=== PATIENT | female | born 1995 | race Caucasian/White ===

== ENCOUNTER → 2017-09-11 14:16 | Outpatient (CLI) | payer MEDICAID, SELFPAY ==
[2017-09-11 22:01] LABS: Chlamydia Trachomatis by PCR Negative (Negative); Neisserai gonorrhoeae by PCR Negative (Negative); Probe Check PASS; Sample Adequacy Control PASS; Specimen Processing Control PASS
[2017-09-12 09:49] LABS: HIV - WCH Non-Reactive (Nonreactive)
[2017-09-13 08:51] LABS: HEPATITIS B SURFACE AG Negative (Negative); Hep C Antibodies <0.1 s/co ratio (0.0-0.9)
[2017-09-14 05:01] LABS: Rapid Plasmin Reagin (RPR) NONREACTIVE (NONREACTIVE)
[2017-09-14 11:43] LABS: HPV Reflexed? NOT INDICATED
== END ==
PROVIDERS: Visit Provider Obstetrics & Gynecology
DX: Z12.4 Encounter for screening for malignant neoplasm of cervix (principal); Z12.72 Encounter for screening for malignant neoplasm of vagina; Z11.3 Encounter for screening for infections with a predominantly sexual mode of transmission
CPT/HCPCS: 36415; 86592; 86703; 86803; 87340; 87491; 87591; 88175; G0145

== ENCOUNTER → 2017-11-15 13:31 | Outpatient (CLI) | payer MEDICAID, SELFPAY ==
[2017-11-15 14:26] LABS: hCG Titer Quant., Serum < 1 mIU/mL (<9 non-preg)
== END ==
PROVIDERS: Visit Provider Obstetrics & Gynecology
DX: N91.2 Amenorrhea, unspecified (principal)
CPT/HCPCS: 36415; 84702

== ENCOUNTER 2018-12-03 22:58 | Emergency (ER) | payer MEDICAID, SELFPAY ==
[2018-12-03 22:59] VITALS: BP 113/67; PULSE 97; RESP 18; TEMP 36.6; O2SAT 95; BMI 33.0
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
--- NOTE | 2018-12-03 23:21 | RAD_ITS ---
STUDY: X-RAY - RIGHT SHOULDER REASON FOR EXAM: Female, 23 years old. Pain TECHNIQUE: 4 view(s) of the shoulder. COMPARISON: None. FINDINGS: Normal glenohumeral articulation. Normal acromioclavicular joint. Normal acromion. Normal humeral head and visualized proximal humerus. The soft tissue structures are unremarkable. Normal visualized pulmonary apex. RAD/Shoulder min 2 Views IMPRESSION: Normal x-ray examination of the shoulder. Electronically Signed: Theresa Guerrero MD at 23:55 EDT Tel , Service support ,
--- NOTE | 2018-12-03 23:54 | ED.RN ---
PT CALLED REQUESTING PAIN MEDICATION. DR ORELLANA NOTIFIED. NO NEW ORDERS RECEIVED.
[2018-12-03] MEDS: Naproxen 500 MG Tablet PO (23:59)
--- NOTE | 2018-12-04 00:01 | ED.DEP ---
ED Disposition - Plan for ED Patient: Instructions: HEAD INJURY, No Wake-Up (Adult), Neck Sprain/Strain, CONTUSION, Upper Extremity Referrals: Van Sanchez DO [Primary Care Provider] -
== END 2018-12-04 00:19 | disposition home or self-care (01) ==
LOC: ED 23:36
PROVIDERS: Emergency Provider Emergency Medicine; Family Provider Student in an Organized Health Care Education/Training Program; PCP Student in an Organized Health Care Education/Training Program
DX: S40.011A Contusion of right shoulder, initial encounter (principal); S16.1XXA Strain of muscle, fascia and tendon at neck level, initial encounter; S09.90XA Unspecified injury of head, initial encounter; Z72.0 Tobacco use; Y04.8XXA Assault by other bodily force, initial encounter; Y93.89 Activity, other specified; Y92.89 Other specified places as the place of occurrence of the external cause; Y99.8 Other external cause status
CPT/HCPCS: 70450; 72125; 73030; 99282

== ENCOUNTER 2019-03-18 10:16 | Emergency (ER) | payer MEDICAID, SELFPAY ==
[2019-03-18 10:17] VITALS: BP 143/74; PULSE 105; RESP 16; TEMP 36.4; O2SAT 97; BMI 31.6
--- NOTE | 2019-03-18 10:32 | CT_ITS ---
STUDY: CT BRAIN WITHOUT CONTRAST REASON FOR EXAM: Female, 24 years old. 3 week history of headaches and photophobia with nausea and vomiting. RADIATION DOSAGE (If Supplied By Facility): CTDIvol = ( 44.99 ) mGy, DLP = ( 745.49 ) mGycm TECHNIQUE: Transaxial CT imaging of the brain was performed without administration of intravenous contrast material. Individualized dose optimization techniques were used for this CT. COMPARISON: Comparison is made with prior examination dated December 03, 2018. FINDINGS: Normal soft tissue structures. Normal calvarium. Normal size ventricles and extra-axial spaces for the patient's age. Normal white matter tracts of the cerebral hemispheres. Normal basal ganglia and thalami. Normal brainstem. Normal cerebellum. There is no intracranial hemorrhage. There are no findings of an acute ischemic infarction. Normal visualized paranasal sinuses. CT/Brain/Head without Contrast IMPRESSION: Normal unenhanced CT scan of the brain. Electronically Signed: Titi Kelley, at 11:07 EDT , Service support ,
[2019-03-18] MEDS: 0.9% Normal Saline 1,000 ML 999 ML IV (11:07)
[2019-03-18] MEDS: Ketorolac 30 MG/ML Syringe 15 MG IV (11:07)
[2019-03-18] MEDS: proCHLORPERazine 10 MG/2 ML Vial IV (11:08)
[2019-03-18] MEDS: DiphenhydrAMINE 50 MG/ML Syringe 25 MG IV (11:10)
--- NOTE | 2019-03-18 12:00 | ED.VIS.HA ---
History of Present Illness Chief Complaint: Headache Narrative: Patient presenting for evaluation secondary to headaches. 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 Patient states that over the course of the last 3 weeks she has had an onset of basically daily headaches. She reports that she will get headaches intermittently throughout the day. She reports that these are gradual in onset, severe, throbbing, bilateral and associated with photophobia and nausea. She denies any head injuries. She denies any fevers. She denies any recent neck manipulations, or any injuries associated with this. Patient states that she does have a neurologist appointment coming up, and is supposed to follow-up in April with the neurologist and also tells me that she is on a couple different medications for these headaches but does not really know what they are. She tells me that she called the ask a nurse line last night, and they told her that it sounds like you may have a little bit of an aneurysm and told her to come to the emergency department. Patient denies any familial history of aneurysms. Review of systems otherwise negative. Past Medical History - Allergies and Home Meds Allergies/Adverse Reactions: Allergies hydrocodone bitartrate [From Vicodin] Allergy (Verified 03/18/19 10:16) Hives tramadol Allergy (Verified 03/18/19 10:16) Hives Fish Containing Products Adverse Reaction (Verified 03/18/19 10:16) Nausea/Vom/Diarrhea Primary Care Physician: Van Sanchez DO [Primary Care Provider] - Past Medical History: - - Brain cyst Smoking Status: Current every day smoker Review of Systems General: Denies: Fever Eyes: Denies: Visual changes - bilaterally Gastrointestinal: Reports: Nausea Musculoskeletal: Denies: Neck pain Neurological: Reports: Headache. Denies: Weakness, Parasthesia Physical Exam Vital Signs/Narrative: Vital Signs Temp Pulse Resp BP Pulse Ox 03/18/19 10:17 97.5 F L 105 H 16 143/74 H 97 Inital Vital Signs reviewed: Yes General: Well nourished, Well developed Head: NC, AT. Negative for: Temporary Artery Tenderness Eyes: Perrl, EOMI, - - Normal for endoscopy bilaterally with normal optic discs and no evidence of retinal hemorrhages. ENT: Moist mucous membranes, No rhinorrhea Neck: Supple, No Lymphadenopathy, No JVD, Nontender, No Meningismus Cardiovascular: Regular rate, Regular rhythm, No murmurs Respiratory: No distress, CTA bilaterally, Chest nontender Abdomen: Soft, Nontender, Nondistended, Normal bowel sounds Back: Nontender, Normal Inspection Extremities: Nontender, No edema Skin: Normal color, No rash Neuro: Alert, Oriented x3, Cranial nerves II-XII grossly intact, Normal Strength, Normal Sensation, Normal DTR, Normal Gait Psychological: Normal affect Diagnostic/Tx/Re-eval - Medical Decision Making Patient presented secondary to headaches. Patient's history and physical really seem more consistent with migraines, but she does report to me that she has a history of having a brain cyst so a CT brain was performed which was found to be negative. Patient was given Benadryl, Compazine, Toradol and fluids. Patient had significant improvement of her symptoms on repeat evaluation and was eating [employer] when I reevaluated her at noon. I do not believe that the patient requires admission or further work-up at this time. As I am unsure of what medicines the patient is on for her headaches, I am uncomfortable with prescribing her with anything new. She was recommended to follow-up with her neurologist as previously scheduled. Disposition: Home ED Disposition - Plan for ED Patient: Disposition: Home or Assisted Living Diagnosis: Chronic headaches Instructions: ED, Migraine (Classical) Additional Instructions: Followup with your neurologist
[2019-03-18 12:24] VITALS: BP 139/89; PULSE 78; RESP 16; O2SAT 99
== END 2019-03-18 12:25 | disposition home or self-care (01) ==
PROVIDERS: Emergency Provider Emergency Medicine; Family Provider Student in an Organized Health Care Education/Training Program; PCP Student in an Organized Health Care Education/Training Program
DX: R51 Headache (principal); F17.200 Nicotine dependence, unspecified, uncomplicated
CPT/HCPCS: 70450; 96361; 96374; 96375; 99283; J7030; A4216

== ENCOUNTER → 2019-10-16 13:46 | Outpatient (CLI) | payer MEDICAID, SELFPAY ==
[2019-10-16 15:27] LABS: HIV - WCH Non-Reactive (Nonreactive); Hepatitis B Surface Antibody Reactive; Hepatitis C Antibody Non-Reactive (Nonreactive)
[2019-10-16 17:58] LABS: Chlamydia Trachomatis by PCR Negative (Negative); Neisserai gonorrhoeae by PCR Negative (Negative); Probe Check PASS; Sample Adequacy Control PASS; Specimen Processing Control PASS
[2019-10-16 18:32] LABS: Probe Check PASS; Sample Adequacy Control PASS; Specimen Processing Control PASS; Trichomonas Vag DNA by PCR Negative (Negative)
[2019-10-19 01:07] LABS: HSV 1 IgG < 0.91 index (0.00-0.90); HSV 2 IgG < 0.91 index (0.00-0.90)
[2019-10-23 03:36] LABS: Rapid Plasmin Reagin (RPR) NONREACTIVE (NONREACTIVE)
== END ==
PROVIDERS: PCP Student in an Organized Health Care Education/Training Program; Visit Provider Obstetrics & Gynecology
DX: Z11.3 Encounter for screening for infections with a predominantly sexual mode of transmission (principal)
CPT/HCPCS: 36415; 86592; 86695; 86696; 86703; 86706; 86803; 87491; 87591; 87661

== ENCOUNTER 2020-05-24 19:01 | Emergency (ER) | payer MEDICAID, SELFPAY ==
[2020-05-24 19:03] VITALS: BP 128/73; PULSE 83; RESP 17; TEMP 35.9; O2SAT 93; BMI 35.9
--- NOTE | 2020-05-24 19:14 | US_ITS ---
HISTORY: Recent miscarriage on 1224. Severe abdominal pain. 56 images. No comparison imaging. Findings: Endovaginal imaging only: The uterus measures 8.9 x 4.6 x 6.3 cm. Myometrium is homogeneous. The endometrial stripe is 8 mm thick. A tiny amount of fluid is present at the region of the endocervical canal likely representing a benign nabothian cyst. Debris is present within the urinary bladder. The right ovary measures 2.7 x 1.6 x 2.3 cm. Color Doppler imaging is nondiagnostic for flow over right ovarian parenchyma. Pulse-wave Doppler imaging suggests possible arterial flow within the right ovarian parenchyma. The left ovary measures 2.6 x 1.7 x 1.8 cm. Color Doppler imaging is nondiagnostic for flow of the left ovarian parenchyma. Pulse-wave Doppler imaging suggests probable flow to the left ovary. Color Doppler imaging over the endometrial stripe fails to demonstrate flow. US/Transvaginal w/Preg US IMPRESSION: Normal. at 2013 Reported and signed by: James Quinn MD Electronically Signed: James Quinn MD at 20:11 EST Tel , Service support ,
--- NOTE | 2020-05-24 19:15 | ED.DCSUM_ITS ---
History of Present Illness Chief Complaint: Abd Pain Informant: Patient Narrative: 25-year-old female G3, P1 Ab1 states that she had a miscarriage . She tells me that around Thanksgiving had an ultrasound that showed no heartbeat. She states that 2 weeks ago she had another ultrasound that showed no heartbeat. She is seeing Dr. Dumont for [facility]. She tells me that on [place] she passed what appeared to be tissue. She states that she was doing well until today she went out to dinner and she started to have some lower abdominal pain. She states that she is having some mild bleeding and only is requiring a panty liner. She denies any urinary frequency or constipati on/diarrhea. She did not talk to [facility] today. In fact she was supposed to see [facility] today but canceled because she had 2 children with her and she was doing okay. Past Medical History - Allergies and Home Meds Allergies/Adverse Reactions: Allergies hydrocodone bitartrate [From Vicodin] Allergy (Verified 05/24/20 19:02) Hives tramadol Allergy (Verified 05/24/20 19:02) Hives Fish Containing Products Adverse Reaction (Verified 05/24/20 19:02) Nausea/Vom/Diarrhea Primary Care Physician: Elver Dumont MD [STAFF PHYSICIAN] - (call to arrange follow up) Past Medical History: - - G3, P1 Ab1 Surgical History: noncontributory Lives: With Family Smoking Status: Current every day smoker Drugs: None Review of Systems General: Denies: Chills, Fever, Sweats Eyes: Denies: Visual changes - bilaterally, Diplopia ENT: Denies: Rhinorrhea, Sore throat Cardiovascular: Denies: Chest pain, Palpitations Respiratory: Denies: Dyspnea, Cough, Dyspnea on exertion Gastrointestinal: Denies: Abdominal pain, Nausea, Vomiting, Diarrhea, Melena, Hematochezia Genitourinary: Reports: - - Pelvic pain. Denies: Dysuria, Hematuria, Frequency Musculoskeletal: Denies: Back pain, Extremity Pain Skin: Denies: Rash, Wounds Neurological: Denies: Headache, Weakness, Numbness Physical Exam Vital Signs/Narrative: Vital Signs Temp Pulse Resp BP Pulse Ox 05/24/20 19:03 96.7 F L 83 17 128/73 H 93 Inital Vital Signs reviewed: Yes General: Well nourished, Well developed, No Acute Distress Head: Normocephalic, Atraumatic Eyes: Perrl, EOMI ENT: Moist mucous membranes, No rhinorrhea Neck: Supple, Nontender Cardiovascular: Regular rate, Regular rhythm, No murmurs Respiratory: No distress, CTA bilaterally, Chest nontender Abdomen: Soft, Nondistended, Normal bowel sounds, Tender. Negative for: Guarding, Rebound tenderness Back: Nontender, Normal Inspection Extremities: Nontender, No edema Skin: Normal color, No rash Neurological: Alert, Oriented x3, Cranial nerves II-XII grossly intact, Normal Strength, Normal Sensation Psychological: Normal affect, Normal Mood Diagnostic/Tx/Re-eval Clinical Impression(s) from Imaging Studies Obstetrics Ultrasound 05/24/20 19:14 IMPRESSION: Normal. at 2013 Reported and signed by: James Quinn MD Electronically Signed: James Quinn MD at 20:11 EST Tel , Service support , - Medical Decision Making Patient's pelvic ultrasound showed no significant findings such as retained products. Her quant was 163. CBC is normal. I spoke with on-call [facility] and they are happy to follow-up with the patient the office. ED Disposition - Plan for ED Patient: Disposition: Home or Assisted Living Diagnosis: Incomplete miscarriage Instructions: ED MISCARRIAGE Incomplete Referrals: Elver Dumont MD [STAFF PHYSICIAN] - (call to arrange follow up)
[2020-05-24 19:42] LABS: Absolute Lymphocyte Count 2.52 X10^3/uL (0.83-4.51); Absolute Neutrophil Count 6.1 X10^3/uL (2.0-7.7); Basophil# 0.06 X10^3/uL; Basophil% 0.6 % (0-1); Eosinophil# 0.13 X10^3/uL; Eosinophils% 1.4 % (0-5); Hemoglobin 13.6 g/dL (12.0-15.0); Lymphocyte # 2.52 X10^3/ul (4.0); Lymphocyte % 26.8 % (19-41); Mean Corp Hgb Conc 32.4 g/dL (32-36); Mean Corpuscular Hgb 29.9 pg (27.0-32.0); Mean Corpuscular Volume 92.3 fL (81-99); Mean Platelet Vol. 10.9 fl (6.2-12.0); Monocyte# 0.61 X10^3/uL; Monocyte% 6.5 % (0-10); NRBC Flagged by Analyzer 0 % (0-5); Neutrophil # 6.05 X10^3/uL (2.7-7.7); Neutrophil % 64.3 % (47-70); Platelet Count 218 K/mm3 (150-450); RBC Distribution Width CV 12.3 % (11.6-14.6); RBC Distribution Width SD 41.4 fl (35.1-43.9); Red Blood Count 4.55 M/mm3 (4.2-5.4); White Blood Count 9.4 K/mm3 (4.4-11.0)
[2020-05-24 19:57] LABS: hCG Titer Quant., Serum 163 mIU/mL (1-3)
[2020-05-24] MEDS: Ketorolac 60 MG/2 ML Vial IM (20:36)
[2020-05-24 21:43] VITALS: RESP 17
[2020-05-24 21:44] LABS: Bacteria 0 SEEN /hpf (None Seen); Mucous, Urine 0 SEEN /hpf (<or=2+); White Blood Cells 0 SEEN /hpf (0-5)
[2020-05-24 21:57] LABS: Color, Urine Yellow (Yellow); Glucose, Dipstick Normal (Normal); Ketone-Dipstick Negative (Negative); Leukocyte Esterase-Dipstick Negative /ul (Negative); Nitrite-Dipstick Negative (Negative); Occult Blood-Urine 250 /ul (Negative); Protein-Dipstick Negative (Negative); Specific Gravity, Urine 1.015 (1.002-1.030); Urine Bilirubin Dipstick Negative (Negative); Urine Clarity Clear (Clear); Urine Urobilinogen Normal (Normal)
[2020-05-24 22:09] LABS: Red Blood Cells-Urine 0-5 SEEN /hpf (0-5); Squamous Epithelial Cells - UA 0-5 SEEN /hpf (5-10)
[2020-05-24 22:21] VITALS: BP 110/71; PULSE 74; RESP 17; O2SAT 98
== END 2020-05-24 22:22 | disposition home or self-care (01) ==
PROVIDERS: Emergency Provider Emergency Medicine; PCP Student in an Organized Health Care Education/Training Program
DX: O03.4 Incomplete spontaneous abortion without complication (principal); F17.200 Nicotine dependence, unspecified, uncomplicated
CPT/HCPCS: 76817; 81001; 84702; 85025; 86900; 86901; 96372; 99283; A4216

== ENCOUNTER 2020-09-20 21:13 | Emergency (ER) | payer MEDICAID, SELFPAY ==
[2020-09-20 21:14] VITALS: BP 137/71; PULSE 97; RESP 16; TEMP 37; O2SAT 96; BMI 34.9
--- NOTE | 2020-09-20 22:01 | US_ITS ---
STUDY: FIRST TRIMESTER OBSTETRICAL ULTRASOUND REASON FOR EXAM: Female, 25 years old Pain right lower quadrant pain LMP: 08/26/20 TECHNIQUE: Transvaginal TECHNICAL QUALITY: Adequate. PRIOR ULTRASOUND: None. FINDINGS: There is visualization of a single gestational sac in a normal intrauterine position. The mean sac diameter (MSD) measures 1 cm, indicating an estimated gestational age (EGA) of 5 weeks, 5 days. The gestational sac shape is within normal limits. There is a visualized yolk sac. The yolk sac measures 0.35 cm. The placenta is non-visualized. There is no demonstrated embryo ( pole). The estimated gestation age (EGA) by LMP is 5 weeks, 4 days. The estimated date of delivery ([facility]) by LMP is 05/19/1931. The estimated gestation age (EGA) by US is 5 weeks, 5 days. The estimated date of delivery ([facility]) by US is 05/18/2021. The uterus measures 10.5 x 7.5 x 6 cm. There is no demonstrated uterine fibroid. The cervix is closed. The right ovary measures 3 x 2.7 x 2.5 cm. There is no right ovarian cyst. There is no visualized right adnexal mass or complex lesion. The left ovary is not visualized.. There is no fluid in the cul de sac. US/Transvaginal w/Preg US IMPRESSION: Early intrauterine of 5 weeks 5 day gestation. No pole seen at this time. Follow-up examination viability recommended. Normal right ovary without torsion, the left ovary is not visualized. Electronically Signed: Kristen Siddiqui MD at 23:26 EDT , Service support ,
[2020-09-20 22:10] LABS: Mucous, Urine 0 SEEN /hpf (<or=2+); Red Blood Cells-Urine 0 SEEN /hpf (0-5)
[2020-09-20 22:13] LABS: Color, Urine Yellow (Yellow); Glucose, Dipstick Normal (Normal); Ketone-Dipstick Negative (Negative); Leukocyte Esterase-Dipstick 25 /ul (Negative); Nitrite-Dipstick Negative (Negative); Occult Blood-Urine Negative /ul (Negative); Protein-Dipstick 15 mg/dl (Negative); Specific Gravity, Urine 1.015 (1.002-1.030); Urine Bilirubin Dipstick Negative (Negative); Urine Clarity Sl. Cloudy (Clear); Urine Urobilinogen Normal (Normal)
[2020-09-20 22:24] LABS: Bacteria 1+ /hpf (None Seen); Squamous Epithelial Cells - UA 0-5 SEEN /hpf (5-10); White Blood Cells 0-5 SEEN /hpf (0-5)
[2020-09-20 22:48] LABS: hCG Titer Quant., Serum 8536 mIU/mL (1-3)
--- NOTE | 2020-09-20 23:34 | ED.DCSUM_ITS ---
- ER Visit Summary Date of Service: 09/20/20 Chief Complaint: Abdominal pain History of Present Illness: The patient is a 25 F who is a G3, P1 took test was + September 07. States her last menstrual period was August 12. States that she had a miscarriage in March. She reports that at 6:00 this evening she pushed the dog with her leg and had the onset of right-sided abdominal pain. She describes it as a sharp, cramping pain is 7-10 at worst 4-10 currently. Is worsened by nothing relieved by nothing. She denies any vaginal bleeding or discharge. She has had nausea without vomiting. No diarrhea. No dysuria or frequency. Physical Examination: Vitals: Stable. Afebrile. General: Well-nourished and well-developed. Head: Normocephalic atraumatic. Neck: Supple, no lymphadenopathy. No JVD. Nontender. Cardiovascular: Regular rate and rhythm. No murmurs. Respiratory: No respiratory distress. Clear to auscultation bilaterally. Abdominal: Soft, mild tenderness palpation over the most lateral portion of her abdomen on the right. This really is not in the peritoneal cavity, nondistended, normal bowel sounds. No guarding, rebound, or peritoneal signs. Back: Nontender. Extremities: Nontender, no edema. Skin: Normal color, no rash. Neurologic: Alert and oriented ?3. Cranial nerves II through XII are intact. Normal strength and sensation. Psych: Normal affect. Test Results: Urinalysis shows 1+ bacteria. Quant is 8536. Blood type is been obtained previously and it is O positive. Clinical Impression(s) from Imaging Studies Obstetrics Ultrasound 09/20/20 22:01 IMPRESSION: Early intrauterine of 5 weeks 5 day gestation. No pole seen at this time. Follow-up examination viability recommended. Normal right ovary without torsion, the left ovary is not visualized. Electronically Signed: Kristen Siddiqui MD at 23:26 EDT , Service support , Emergency Department Course and Treatment: Patient is resting comfortably. She refused pain or nausea medications. Treatment Plan: Patient was reassured. She is instructed to follow-up with her primary care physician within a week for further evaluation. Return to the emergency department for any worsening symptoms. Disposition: To home in improved and stable condition. Impression: 1. Intrauterine gestational sac and yolk sac. This note was generated with [employer] dictation software. It may contain incorrect words, spelling, and punctuation that were not noted in review of the chart prior to signing ED Disposition - Plan for ED Patient: Instructions: ED , New Dx Referrals: Aziza Kiran DO [STAFF PHYSICIAN] - 1 Week
[2020-09-20 23:43] VITALS: BP 122/54; PULSE 71; RESP 17; O2SAT 99
== END 2020-09-20 23:44 | disposition home or self-care (01) ==
PROVIDERS: Emergency Provider Emergency Medicine; PCP Student in an Organized Health Care Education/Training Program
DX: O26.891 Other specified pregnancy related conditions, first trimester (principal); O99.331 Smoking (tobacco) complicating pregnancy, first trimester; F17.200 Nicotine dependence, unspecified, uncomplicated; Z3A.01 Less than 8 weeks gestation of pregnancy
CPT/HCPCS: 76817; 81001; 84702; 87086; 99283

== ENCOUNTER 2020-10-08 17:51 | Emergency (ER) | payer MEDICAID, SELFPAY ==
[2020-10-08 17:52] VITALS: BP 117/58; PULSE 91; RESP 17; TEMP 36.7; O2SAT 96; BMI 37.3
--- NOTE | 2020-10-08 18:07 | US_ITS ---
INDICATION: cramping EXAMINATION: US OB Less Than 14 Weeks TECHNIQUE: Transabdominal pelvic ultrasound was performed. Grayscale, spectral waveform, and color flow Doppler evaluation of the adnexa. COMPARISON: 09/20/2020. FINDINGS: UTERUS: Measures 10.9 x 7.9 x 6 cm. Partial septate uterus. RIGHT OVARY: Measures 3 x 2.9 x 2.5 cm. Normal. LEFT OVARY: Measures 2.5 x 1.5 x 1.3 cm. Normal. FREE FLUID: None. INTRAUTERINE GESTATIONAL SAC(s) (size/shape): Single. Mean sac diameter of 3.2 cm. YOLK SAC: Identified POLE: Identified CRL 1.7 cm. ESTIMATED GESTATION AGE: 8 weeks 1 days. HEART MOTION: 157 bpm. PLACENTA: Not visualized due to age. SUBCHORIONIC HEMORRHAGE: None. AMNIOTIC FLUID: Qualitatively normal. US/Init OB < 14Wks US IMPRESSION: Single live intrauterine . Estimated gestational age is 8 weeks and 1 day. Partial septate uterus. Electronically Signed: Martin Sood MD at 20:19 EDT Tel , Service support ,
--- NOTE | 2020-10-08 18:08 | EDS_ITS ---
HPI HPI - Female History of Present Illness Chief Complaint: Abd Pain Informant: patient Associated Symptoms P: 1 Ab: 1 Narrative Narrative: Patient has suprapubic cramping. Symptom started yesterday. She describes cramping in her lower abdominal region. She denies any vaginal bleeding. She does have some physiologic vaginal discharge which she has had throughout this . She denies any urinary symptoms. No nausea or vomiting. She called her [employer] who told her to come in for an ultrasound. She has had an ultrasound a week for this . She is G3, P1, Ab1 currently at 8 weeks gestation. [facility] Medical History (Updated 10/08/20 @ 20:[address] Alejandro Knapp MD) Broken arms Home Medications PNV cmb#95-ferrous fumarate-FA 1 each PO DAILY 09/20/20 [History Last Taken Unknown] Allergy/AdvReac Type Severity Reaction Status Date / Time hydrocodone bitartrate Allergy Hives Verified 10/08/20 17:52 [From Vicodin] tramadol Allergy Hives Verified 10/08/20 17:52 Fish Containing Products AdvReac Nausea/Vom/ Verified 10/08/20 17:52 Diarrhea Surgical History (Updated 10/08/20 @ 18:19 by Ania Dejesus) History of cholecystectomy History of right knee surgery Social History Smoking Status: Current every day smoker ROS ROS ED Constitutional Constitutional ED: Denies chills or fever(s) Eyes Eyes: Denies blurry vision, change in vision or diplopia ENT ENT ED: Denies ear pain, rhinorrhea or sore throat Cardiovascular Cardiovascular: Denies chest pain or palpitations Respiratory/Chest Respiratory/Chest: Denies cough, dyspnea or sputum Gastrointestinal Gastrointestinal: Reports abdominal pain Genitourinary Genitourinary ED: Denies dysuria, hematuria or urinary frequency Musculoskeletal Musculoskeletal: Denies back pain or neck pain Integumentary Denies change in pigmentation or rash Neurologic Neurologic: Denies headache(s), numbness or weakness Psychiatric Psychiatric: Denies anxiety or depression Endocrine Endocrinology: Denies polydipsia or polyuria EXAM Physical Exam Const Vital Signs: 10/08/20 17:52 Temperature 98.0 F Temperature Source Temporal Pulse Rate 91 Respiratory Rate 17 Blood Pressure 117/58 L Blood Pressure Mean 77 Pulse Ox 96 Oxygen Delivery Method Room Air Positive well nourished and well developed General Appearance ED: well developed and NAD HEENT Reports moist mucous membranes normocephalic and atraumatic; Negative for tenderness Eyes PERRL and EOMs intact bilaterally Neck supple and no JVD Chest Wall Chest: Negative for tenderness Resp normal respiratory effort and clear to auscultation bilaterally Effort and Inspection: Negative for respiratory distress Cardio regular rate, regular rhythm and no murmurs Rate: regular rate Rhythm: regular rhythm GI soft to palpation and non-distended Palpation: soft and tender suprapubic (Mild) Narrative: Female exam is deferred Back/Spine no CVA tenderness and no thoracic nor lumbar tenderness Cervical Spine: Negative for cervical spine tenderness Extremity normal to inspection and full ROM General Extremety ED: Negative for tenderness Neuro oriented x3, CN's II-XII intact bilaterally and no sensory deficits noted Sensorium / Orientation: awake and alert Motor Exam: strength 5/5 throughout Psych mental status grossly normal Skin no rashes or lesions noted MDM MDM MDM Narrative Medical decision making narrative: Patient's urinalysis showed no infection. hCG quantitative is 71,642. Ultrasound reveals a single live IUP at 8 weeks and 1 day. The heart rate is 157. Patient felt improved upon reevaluation. I do not feel the patient requires any other acute work-up. She will take Tylenol for pain at home. She will follow-up with her [employer]. Lab Data Labs: Laboratory Results - last 24 hr 10/08/20 10/08/20 18:02 18:24 HCG, Quant [id number] H Urine Color Yellow Urine Clarity Clear Urine pH 6.0 Ur Specific [place] 1.020 Urine Protein Negative Urine Glucose (UA) Normal Urine Ketones Negative Urine Occult Blood Negative Urine Nitrite Negative Urine Bilirubin Negative Urine Urobilinogen Normal Ur Leukocyte Esterase Negative Urine RBC 0 SEEN Urine WBC 0-5 SEEN Ur Squamous Epith Cells 0-5 SEEN Urine Bacteria 1+ Urine Mucus 0 SEEN Radiography Diagnostic Testing: Radiology Impression Obstetrics Ultrasound 10/08/20 18:07 IMPRESSION: Single live intrauterine . Estimated gestational age is 8 weeks and 1 day. Partial septate uterus. Electronically Signed: Martin Sood MD at 20:19 EDT Tel , Service support , Discharge Plan Triage Chief Complaint: Abd Pain ED Provider: Alejandro Knapp Dx/Rx/DC Orders Clinical Impression: , threatened Instructions: ED Pelvic Pain, Unknown Cause Prescriptions: No Action PNV cmb#95-ferrous fumarate-FA 1 EACH tablet 1 each PO DAILY RF: 0 Primary Care Provider: Van Sanchez Referrals: Van Sanchez, [Primary Care Provider] - Disposition Disposition: Home, self care
[2020-10-08 18:33] LABS: Mucous, Urine 0 SEEN /hpf (<or=2+); Red Blood Cells-Urine 0 SEEN /hpf (0-5)
[2020-10-08 19:07] LABS: Color, Urine Yellow (Yellow); Glucose, Dipstick Normal (Normal); Ketone-Dipstick Negative (Negative); Leukocyte Esterase-Dipstick Negative /ul (Negative); Nitrite-Dipstick Negative (Negative); Occult Blood-Urine Negative /ul (Negative); Protein-Dipstick Negative (Negative); Urine Bilirubin Dipstick Negative (Negative); Urine Clarity Clear (Clear); Urine Urobilinogen Normal (Normal)
[2020-10-08 19:24] LABS: Bacteria 1+ /hpf (None Seen); Squamous Epithelial Cells - UA 0-5 SEEN /hpf (5-10); White Blood Cells 0-5 SEEN /hpf (0-5)
== END 2020-10-08 20:51 | disposition home or self-care (01) ==
PROVIDERS: Emergency Provider Emergency Medicine; PCP Student in an Organized Health Care Education/Training Program
DX: O20.0 Threatened abortion (principal); Z3A.08 8 weeks gestation of pregnancy; F17.200 Nicotine dependence, unspecified, uncomplicated; O99.331 Smoking (tobacco) complicating pregnancy, first trimester; Q51.22 Partial doubling of uterus; O34.01 Maternal care for unspecified congenital malformation of uterus, first trimester; Z90.49 Acquired absence of other specified parts of digestive tract
CPT/HCPCS: 36415; 76801; 81001; 84702; 99282

== ENCOUNTER → 2021-02-23 12:12 | Outpatient (CLI) | payer MEDICAID, SELFPAY | PROVIDERS: PCP Student in an Organized Health Care Education/Training Program | DX: Z36.2 Encounter for other antenatal screening follow-up (principal) ==

== ENCOUNTER → 2021-02-25 09:35 | Outpatient (CLI) | payer MEDICAID, SELFPAY ==
[2021-02-25 11:03] LABS: Glucose GTT-Gestation. Fasting 83 mg/dL (<105)
[2021-02-25 12:42] LABS: Glucose GTT-Gestational 2 Hr 191 mg/dL (<165)
[2021-02-25 12:43] LABS: Glucose GTT-Gestational 1 Hr 212 mg/dL (<190)
[2021-02-25 14:22] LABS: Glucose GTT-Gestational 3 Hr 118 L (<145)
== END ==
PROVIDERS: PCP Student in an Organized Health Care Education/Training Program
DX: Z13.1 Encounter for screening for diabetes mellitus (principal)
CPT/HCPCS: 36415; 82951; 82952

== ENCOUNTER 2022-07-07 19:30 | Emergency (ER) | payer MEDICAID, SELFPAY ==
[2022-07-07 19:31] VITALS: BP 132/85; PULSE 96; RESP 18; TEMP 36.2; O2SAT 97; BMI 39.4
[2022-07-07] MEDS: Morphine 4 MG/ML Syringe IV ×2 (20:06→21:26)
[2022-07-07] MEDS: Ketorolac 15 MG/ML Vial IV (20:06)
--- NOTE | 2022-07-07 20:06 | EX.ED.VISEXT ---
HPI History of Present Illness Chief Complaint: Bite Informant: patient Narrative Narrative: Patient is aPatient is a 27-year-old female with no significant past medical history presenting with a dog bite to her left calf. He was at her cousin's house and the cousins sinai came down the stairs. She was behind a baby gate and her mother had over her dog. The mieshabull jumped over the gate to try to get to the other dog and the patient was holding the other dog trying to protect it. She was bit in the left calf. EMS was called she was brought to the ER. As far she is aware the mieshabull is otherwise been acting normally. She is unsure about the dogs vaccination status. Complain of significant pain of her calf. Denies any other injuries. States she was 2 years ago and think she probably had a Tdap at that time. Denies any numbness or tingling. No other complaints at this time. Is not on any blood thinners. Patient received 100 mcg of fentanyl IV in route via EMS. Tetanus Immunization: <5 years ROS [facility] ED Constitutional Constitutional ED: Denies chills or fever(s) Respiratory/Chest Respiratory/Chest: Denies dyspnea Gastrointestinal Gastrointestinal: Denies nausea or vomiting Musculoskeletal Musculoskeletal: Reports other Details: left calf pain Integumentary Reports other Details: dog bite to left calf Neurologic Neurologic: Denies paresthesias or weakness Psychiatric Psychiatric: Denies anxiety Hematologic/Lymphatic Hematologic/Lymphatic: Denies easy bleeding or easy bruising [facility] Medical History (Updated 07/07/22 @ 23:[address] Fátima Phillips, DO) Broken arms Kidney stone Home Medications vit no.95-ferrous fumarate 28 mg-folic acid 800 mcg tablet 1 each PO DAILY 09/20/20 [History Last Taken Unknown] amoxicillin 875 mg-potassium clavulanate 125 mg tablet 1 tab PO BID #20 tabs 07/07/22 [Rx Last Taken Unknown] oxycodone-acetaminophen 5 mg-325 mg tablet (Percocet) 1 tab PO Q6H PRN pain 3 days #12 tabs 07/07/22 [Rx Last Taken Unknown] Allergy/AdvReac Type Severity Reaction Status Date / Time hydrocodone bitartrate Allergy Hives Verified 10/08/20 17:52 [From Vicodin] tramadol Allergy Hives Verified 10/08/20 17:52 Fish Containing Products AdvReac Nausea/Vom/ Verified 10/08/20 17:52 Diarrhea Surgical History History of cholecystectomy History of right knee surgery Social History Smoking Status: Current every day smoker tobacco type: cigarettes EXAM Physical Exam Const Vital Signs: 07/07/22 19:31 07/07/22 22:36 Temperature 97.2 F L Temperature Source Temporal Pulse Rate 96 90 Respiratory Rate 18 18 Blood Pressure 132/85 H 100/74 Blood Pressure Mean 100 82 Pulse Ox 97 97 Oxygen Delivery Method Room Air Room Air Positive well nourished and well developed General Appearance ED: well developed and NAD HEENT Reports moist mucous membranes normocephalic and atraumatic Eyes PERRL Neck full ROM Resp normal respiratory effort Cardio regular rate and regular rhythm Extremity full ROM Extremity Narrative: Dog bite to left calf. Compartments are soft but tender. No crepitus appreciated. General Extremety ED: Negative for deformity General Extremity: Negative for deformity Neuro oriented x3 and no sensory deficits noted Motor Exam: strength 5/5 throughout and muscle tone normal throughout Skin Skin Narrative: 4 cm full-thickness gaping laceration to proximal medial calf. There is a .5 cm posterior laceration just below the knee of the left leg. On the lateral/proximal aspect there is a 1 cm full-thickness laceration. There are some superficial abrasions that are nonbleeding to the right calf. No active bleeding at this time. MDM MDM MDM Narrative Medical decision making narrative: Patient evaluated for dog bite to her left calf. Patient is having significant pain. She is given 100 mcg of fentanyl prior to arrival. She is then given additional 50 mcg of fentanyl and then 2 doses of IV morphine in the ER. X-ray obtained to make sure there is no associated foreign body or underlying fracture. This is negative. X-ray interpreted by myself as well as radiology. Patient has soft compartments and I do not think she has associated compartment syndrome. Due to how big and gaping her lacerations are will loosely approximate them. See procedure note. Patient tolerated this very well. She is given a dose of oxycodone as well as Augmentin prior to discharge. She is able to ambulate in the ER. She is given wound care instructions. 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 She verbalizes agreement understand this plan. Discharged home in stable condition. Radiography Diagnostic Testing: Clinical Impression(s) from Imaging Studies Tibia/Fibula X-Ray 07/07/22 20:15 IMPRESSION: Soft tissue injury to the posterior calf without osseous or articular abnormality. Electronically Signed: Andrew Rebolledo at 20:28 EST Reading Location ID and State: [address] [place] [address] Tel [phone], Service support , Procedures Lacerations posterior calf : Length: 1.57 in Depth: Sub Q Shape: Linear Prep: Chlorhexadine Laceration repair: Debrideded, Irrigated, Lidocaine with epi, Skin sutures (3) and Subcutaneous sutures (2) Irrigated (ml): 999 Number of Sutures/Samir: 5 Suture Information: Vicryl (4-0 absorbable ), Ethilon (superficial 4-0), Simple (1) and Horizontal (x 2 ) medial calf: Length: 0.39 in Depth: Skin Shape: Stellate Prep: Chlorhexadine Laceration repair: Debrideded, Irrigated, Lidocaine with epi, Local and Skin sutures Irrigated (ml): 500 Number of Sutures/[place]: 1 Suture Information: Ethilon, Simple and 4-0 Discharge Plan Triage Chief Complaint: Bite ED Provider: Fátima Phillips Dx/Rx/DC Orders Clinical Impression: Dog bite of extremity, Pain of right calf Instructions: ED Dog Bite Prescriptions: New amoxicillin-pot clavulanate 875-125 mg tablet 1 tab PO BID Qty: 20 0RF oxycodone-acetaminophen [Percocet] 5-325 mg tablet 1 tab PO Q6H PRN (Reason: pain) 3 Days Qty: 12 0RF No Action PNV cmb#95-ferrous fumarate-FA 1 EACH tablet 1 each PO DAILY Stand Alone Forms: ED Work / School Excuse Primary Care Provider: Van Sanchez Referrals: Van Sanchez DO [Primary Care Provider] - Disposition Disposition: Home, Self Care Discharge Date/Time: 07/07/22 23:20
--- NOTE | 2022-07-07 20:15 | RAD_ITS ---
STUDY: X-RAY - LEFT TIBIA AND FIBULA REASON FOR EXAM: Female, 27 years old. Dog bite to the posterior lower leg and popliteal region TECHNIQUE: 2 view(s) of the tibia and fibula were obtained. COMPARISON: None. FINDINGS: Normal visualized tibia. Normal visualized fibula. There is no acute fracture, dislocation or destructive osseous pathology. The knee and ankle are intact. There is soft tissue irregularity in the posterior calf and popliteal region with soft tissue air. No foreign body. RAD/Tibia & Fibula 2 Views IMPRESSION: Soft tissue injury to the posterior calf without osseous or articular abnormality. Electronically Signed: Andrew Rebolledo DO at 20:28 EST ,
[2022-07-07] MEDS: Lidocaine 1% /Epi 1:100 (20ml) 20 ML Vial INFILT (21:26)
[2022-07-07 22:36] VITALS: BP 100/74; PULSE 90; RESP 18; O2SAT 97
[2022-07-07] MEDS: oxyCODONE 5 MG Tablet PO (22:41)
[2022-07-07] MEDS: Amox/Clavulanate 875 MG Tablet PO (22:41)
== END 2022-07-07 23:20 | disposition home or self-care (01) ==
PROVIDERS: Emergency Provider Emergency Medicine; PCP Student in an Organized Health Care Education/Training Program; Visit Provider Emergency Medicine
DX: S81.852A Open bite, left lower leg, initial encounter (principal); F17.210 Nicotine dependence, cigarettes, uncomplicated; M79.661 Pain in right lower leg; W54.0XXA Bitten by dog, initial encounter
CPT/HCPCS: 12001; 73590; 96374; 96375; 96376; 99285; A4216